=== PATIENT | male | born 1965 | race Two or more races ===

== ENCOUNTER 2019-11-01 00:25 | Emergency (ER) | payer SELFPAY ==
[~2019-11-01 00:25] MED LIST: AMLO-150 PO; CARV6.2512 PO; EPINEPHRINE SYRINGE 0.1 MG/ML, 10ML ONE; FURO20TA3 PO; OMEP-110 PO; ROCURONIUM 10 MG/ML,10ML ONE; SPIR25TA5 PO
[2019-11-01] MEDS ORDERED: TRANEXAMIC ACID 100 MG/ML, 10ML ONE (00:33)
[2019-11-01] MEDS ORDERED: CODE BLUE RESPONSE XX ONE (00:44)
[2019-11-01] MEDS ORDERED: EPINEPHRINE SYRINGE 0.1 MG/ML, 10ML ONE (00:44)
--- NOTE | 2019-11-01 00:57 | NUR ---
called [place], spoke with ariane.
--- NOTE | 2019-11-01 01:00 | NUR ---
LATE ENTRY: ARRIVED BY [facility] FROM HOME W/ CO CHEST PAIN AND SOB. UPON ARRIVAL PT RESTLESS, PALE, COOL, AND DIAPHORETIC. PATIENT BECAME UNRESPONSIVE AND BRADYCARDIC IMMEDIATELY UPON ARRIVAL. THIS PROGRESSED TO [facility]. CPR INITIATED IMMEDIATELY. SEE CODE SHEET FOR DETAILS. TIME OF CALLED AT [address] HYDE. HX OBTAINED BY EMS INCLUDES HTN AND CARDIOMYOPATHY. [employer] CONTACTED BY RAYMOND GUZMAN. AIRLINE CAPTAIN REFUSING PATIENT. [employer]WORK CONTACTED @ 0049 BY THIS RN. SPOKE WITH RAVI WHO STATES THAT THE PATIENT IS A TISSUE CANDIDATE. RAVI WILL CONTACT ED WITH MORE INFORMATION. ID#[id number] NO FAMILY PRESENT. NO FAMILY CONTACT INFORMATION AVAILABLE.
--- NOTE | 2019-11-01 02:20 | NUR ---
RECEIVED REPORT FROM RAYMOND ALDRIDGE. AWAITING FAMILY TO SEE PATIENT.
--- NOTE | 2019-11-01 03:10 | NUR ---
family here to see patient. Daughter Ree will be the next of kin.
--- NOTE | 2019-11-01 03:30 | NUR ---
patient necklace and 1 earring removed and handed to daughter.
--- NOTE | 2019-11-01 03:45 | NUR ---
Daughter chose [facility].
--- NOTE | 2019-11-01 04:20 | NUR ---
patient placed on cadaver bag and taken to [facility].
== END 2019-11-01 05:53 | disposition expired ==
LOC: EDBD → MERGE 00:25 → ED 01:40
DX: I46.9 Cardiac arrest, cause unspecified (principal); K92.2 Gastrointestinal hemorrhage, unspecified; I10 Essential (primary) hypertension; R41.82 Altered mental status, unspecified; R07.89 Other chest pain; R06.02 Shortness of breath; R10.9 Unspecified abdominal pain; F17.200 Nicotine dependence, unspecified, uncomplicated
CPT/HCPCS: 31500; 92950; 99285